=== PATIENT | male | born 1955 | race Two or more races ===

== ENCOUNTER 2024-05-31 09:20 | Emergency (ER) | payer OTHER ==
[~2024-05-31] VITALS: Ht 167.6 cm; Wt 79.4 kg
[2024-05-31] MEDS ORDERED: AMLODIPINE-BEN1 EAC2 (09:21)
[2024-05-31] MEDS ORDERED: METOPROLOL TART50 MG (09:22)
[2024-05-31] MEDS ORDERED: ONDANSETRON HCL 2 MG/ML VIAL IV ONE (10:00)
[2024-05-31] MEDS ORDERED: FAMOtidine 10 MG/ML (4ML VIAL) IV ONE (10:00)
[2024-05-31] MEDS ORDERED: 0.9 % SODIUM CHLORIDE 1,000 ML IV ONE (10:00)
[2024-05-31] MEDS ORDERED: FAMOTIDINE/PF 20 MG/2 ML VIAL ONE (10:01)
[2024-05-31] MEDS ORDERED: ONDANSETRON HCL 2 MG/ML VIAL ONE (10:01)
[2024-05-31 10:10] LABS: ABG PH 7.361 (7.35-7.45); ABG PO2 70.7 mmHg (80-100); BASE EXCESS -4.8 mmol/l; BICARBONATE 19.9 mmol/l (23-25); SaO2 92.9 %
[2024-05-31 10:27] LABS: HEMATOCRIT 46.6 % (39.0-48.0); HEMOGLOBIN 15.8 g/dL (13-16.00); MEAN CORPUSCULAR HEMOGLOBIN 30.1 pg (27.00-32.0); MEAN CORPUSCULAR HGB CONC 33.8 g/dl (32.0-36.0); PLATELET COUNT 279 K/uL (150-450); RED BLOOD COUNT 5.24 M/uL (4.00-6.00); RED CELL DISTRIBUTION WIDTH 14.6 % (11.5-14.5)
[2024-05-31 11:04] LABS: o2 21 %
[2024-05-31 11:05] LABS: allen test SATISFACTORY; puncture site RADIAL RIGHT
[2024-05-31 11:10] LABS: ALBUMIN 3.4 gm/dL (3.4-5.0); BILIRUBIN TOTAL 0.46 mg/dL (0.3-1.2); CALCIUM 9.3 mg/dL (8.5-10.1); CREATININE SERUM 1.39 mg/dL (0.70-1.30); GFR 50.66; GLOBULINA 4.6 G/DL (2.4-3.5); POTASSIUM 4.32 mEq/L (3.5-5.1)
[2024-05-31 12:36] LABS: URINE APPEARANCE Clear; URINE BILIRRUBIN Negative (NEGATIVE); URINE BLOOD Small; URINE COLOR Yellow; URINE GLUCOSE Negative (NEGATIVE); URINE KETONE Negative (NEGATIVE); URINE LEUKOCYTE Negative; URINE NITRATE Negative; URINE PROTEIN 30 (NEGATIVE); URINE UROBILINOGEN 0.2 E.U./dl
[2024-05-31 12:40] LABS: URINE BACTERIA 16.3 uL (0.0-1933); URINE CAST 2.44 uL (0.0-1.40); URINE EPITHELIAL CELLS 7.4 uL (0.0-38.8)
== END 2024-05-31 12:58 | disposition home or self-care (01) ==
LOC: ER 09:21
PROVIDERS: General Practice
DX: R55 Syncope and collapse (principal); I10 Essential (primary) hypertension
CPT/HCPCS: 36415; 70450; 71045; 82803; 93005; 96365; 99284; J2405; J3490